=== PATIENT | male | born 1995 | race Caucasian/White ===

== ENCOUNTER 2017-06-16 16:44 | Emergency (ER) | payer OTHER ==
[2017-06-16 16:48] VITALS: BP 135/78; PULSE 106; RESP 20; TEMP 97
[2017-06-16] MEDS ORDERED: cefTRIAXone 1,000 MG VIAL (IM USE) IM STA (17:05)
--- NOTE | 2017-06-16 17:24 | ED ---
Skin/Abscess/FB HPI - General Chief complaint: Skin/Abscess/Foreign Body Stated complaint: Abscess/boils on lower back Time Seen by Provider: 06/16/17 16:56 Source: patient, RN notes reviewed Mode of arrival: ambulatory Limitations: no limitations - History of Present Illness Initial comments: This is a 21-year-old male who presents to the emergency department with chief complaint of abscess. Patient states that on Sunday night he developed what he thought was a pimple on his left buttock. Ximena at bedside states that she tried to pop it. He states that over the course of this past week it has progressively grown in size and is painful to sit down. He states that he has had a lot of drainage from the area. He states that he spoke with his grandmother who is a retired nurse. She thought that patient should present to the emergency department for antibiotics. Patient denies any fevers or chills. Denies chest pain, shortness of breath, abdominal pain, nausea or vomiting, constipation or diarrhea, dysuria or hematuria, numbness or tingling, headache or vision changes. - Related Data Home Medications Medication Instructions Recorded Confirmed Albuterol Nebulized [Ventolin 2.5 mg INHALATION RT-Q6H PRN 06/16/17 06/16/17 Nebulized] Previous Rx's Medication Instructions Recorded Sulfamethox-Tmp 800-160Mg [Bactrim 1 tab PO Q12HR #20 tab 06/16/17 DS 800-160 mg] Allergies Allergy/AdvReac Type Severity Reaction Status Date / Time amoxicillin Allergy Unknown Verified 06/16/17 17:06 Review of Systems ROS Statement: Those systems with pertinent positive or pertinent negative responses have been documented in the HPI. ROS Other: All systems not noted in ROS Statement are negative. Past Medical History Past Medical History: Asthma History of Any Multi-Drug Resistant Organisms: None Reported Past Surgical History: No Surgical Hx Reported Past Psychological History: No Psychological Hx Reported Smoking Status: Current some day smoker Past Alcohol Use History: None Reported Past Drug Use History: Marijuana General Exam - General Exam Comments Initial Comments: General: Awake and alert, well-developed; in no apparent distress. HEENT: Head atraumatic, normocephalic. Pupils are equal, round and reactive to light. Extraocular movements intact. Oropharynx moist without erythema or exudate. Neck: Supple. Normal ROM. Cardiovascular: Regular rate and rhythm. No murmurs, rubs or gallops. Chest symmetrical. Respiratory: Lungs clear to auscultation bilaterally. No wheezes, rales or rhonchi. Normal respiratory effort with no use of accessory muscles. Musculoskeletal: Normal ROM, no tenderness bilateral upper and lower extremities. Ambulating normally. Skin: [place], warm and dry. 10.5 cm in diameter area of induration and erythema left buttock. There is a central area where abscess has been draining. No active drainage. Neurological: Alert and oriented x3. CN II-XII grossly intact. Speech is fluent and answers are appropriate. No focal neuro deficits. Psychiatric: Normal mood and affect. No overt signs of depression or anxiety noted. Limitations: no limitations Course Vital Signs 06/16/17 16:46 Temperature 97.0 F L Pulse Rate 106 H Respiratory 20 Rate Blood Pressure 135/78 O2 Sat by Pulse 99 Oximetry Medical Decision Making - Medical Decision Making This is a 21-year-old male who presents to the emergency department with chief complaint of abscess. There is an area of induration noted at left buttock. Abscess has already been draining. No active drainage or area of fluctuance. Patient given IM ceftriaxone while in the emergency department. He will be discharged home with prescription for Bactrim. Patient's vital signs are stable and he is in no acute distress. He is in agreement and voices understanding. All questions answered. Disposition Clinical Impression: Cellulitis of buttock, left Disposition: HOME SELF-CARE Condition: Good Instructions: Abscess (ED), Cellulitis (ED) Additional Instructions: Please take medications as prescribed. Please apply warm compresses. Please follow up with primary care provider within 1-2 days. Return to emergency department if symptoms should worsen or any concerns arise. Prescriptions: Sulfamethox-Tmp 800-160Mg [Bactrim DS 800-160 mg] 1 tab PO Q12HR #20 tab Referrals: None,Stated [Primary Care Provider] - 1-2 days Time of Disposition: 17:23
== END 2017-06-16 17:35 | disposition home or self-care (01) ==
LOC: EC 16:44
DX: L03.317 Cellulitis of buttock (principal); F17.200 Nicotine dependence, unspecified, uncomplicated; Z88.0 Allergy status to penicillin
CPT/HCPCS: 99282; 96372; J0696

== ENCOUNTER 2018-06-30 18:12 | Emergency (ER) | payer OTHER ==
[2018-06-30 18:28] VITALS: TEMP 98.2
[2018-06-30] MEDS ORDERED: KETOROLAC 30 MG/ML 1 ML VIAL IVP STA (18:43)
--- NOTE | 2018-06-30 18:53 | ED ---
General Adult HPI - General Chief complaint: Abdominal Pain Stated complaint: side pain Time Seen by Provider: 06/30/18 18:33 Source: patient Mode of arrival: ambulatory Limitations: no limitations - History of Present Illness Initial comments: 22-year-old male past medical history of asthma and smoking history presenting today for chief complaint of left-sided rib pain. Patient states that yesterday he began to develop left-sided rib pain. He states has been on and off throughout the day increasing. He states is at work and cannot take the pain a nd presented for medication. Patient denies any radiation of the pain. Patient states the pain is constant, stabbing pain. Patient denies any chest pain, dyspnea, dyspnea on exertion. He states he is a smoker and has a mild cough he denies any changes in his usual occasional cough. Patient denies any trauma to the chest or ribs. He denies any hematuria, dysuria. Patient denies any back pain, wheezing, nausea or vomiting, upper or lower abdominal pain. Upon arrival pt appears well, no acute distress. VS reveal elevation of BP remaining within acceptable limits. - Related Data Home Medications Medication Instructions Recorded Confirmed Albuterol Nebulized [Ventolin 2.5 mg INHALATION RT-Q6H PRN 06/16/17 06/16/17 Nebulized] Previous Rx's Medication Instructions Recorded Sulfamethox-Tmp 800-160Mg [Bactrim 1 tab PO Q12HR #20 tab 06/16/17 DS 800-160 mg] Allergies Allergy/AdvReac Type Severity Reaction Status Date / Time amoxicillin Allergy Unknown Verified 06/30/18 18:28 Review of Systems ROS Statement: Those systems with pertinent positive or pertinent negative responses have been documented in the HPI. ROS Other: All systems not noted in ROS Statement are negative. Past Medical History Past Medical History: Asthma History of Any Multi-Drug Resistant Organisms: None Reported Past Surgical History: No Surgical Hx Reported Past Psychological History: No Psychological Hx Reported Smoking Status: Never smoker Past Alcohol Use History: Daily Past Drug Use History: Marijuana General Exam - General Exam Comments Initial Comments: General: The patient is awake and alert, in no distress, and does not appear acutely ill. Eye: +3 mm pupils are equal, round and reactive to light, extra-ocular movements are intact. No nystagmus. There is normal conjunctiva bilaterally. No signs of icterus. Ears, nose, mouth and throat: There are moist mucous membranes and no oral lesions. Neck: The neck is supple, there is no tenderness or JVD. Cardiovascular: There is a regular rate and rhythm. No murmur, rub or gallop is appreciated. Tenderness to palpation of the left side of lower ribs. Lung sounds present in all garcia. Respiratory: Lungs are clear to auscultation, respirations are non-labored, breath sounds are equal. No wheezes, stridor, rales, or rhonchi. Gastrointestinal: Soft, non-distended, non-tender abdomen without masses or organomegaly noted. There is no rebound or guarding present. No CVA tenderness. Bowel sounds are unremarkable. Musculoskeletal: Normal ROM, no tenderness. Strength 5/5. Sensation intact. Radial pulses equal bilaterally 2+. Neurological: A&O x 3. CN II-XII intact, There are no obvious motor or sensory deficits. Coordination appears grossly intact. Speech is normal. Skin: Skin is warm and dry and no rashes or lesions are noted. Psychiatric: Cooperative, appropriate mood & affect, normal judgment. Limitations: no limitations Course Vital Signs 06/30/18 18:24 Temperature 98.2 F Pulse Rate 92 Respiratory 20 Rate Blood Pressure 154/85 O2 Sat by Pulse 98 Oximetry EKG Findings - EKG Comments: EKG Findings:: A 12-lead EKG was performed and shows the following: Rate is 75 bpm, and rhythm is normal sinus with sinus arrythmia. There are normal QRS complexes and normal R-wave progression. ST segments have no elevation or depression, and OK segments appear normal. Medical Decision Making - Medical Decision Making Well-appearing 22-year-old male presenting today for chief of left rib pain. Patient states unsure if he had hard cough as he smokes marijuana and sometimes has coughing spells. Lungs clear upon auscultation. Normal cardiac examination. X-ray of the abdomen and left lateral ribs revealed no abnormali ty. EKG no acute abnormalities. No other associated symptoms. Reproducible to touch. PERC (-). UA no hematuria. No CVA tendneress. Benign abdominal exam. At this time I feel patient pain musculoskeletal given significance of tenderness to palpation. No skin abnormalities. Patient given toradol. Upon reevaluation patient states that pain improved. Case discussed with attending Dr. Sadler who at this time feels patient is stable for discharge with outpatient PCP f/u. Return parameters were discussed at length the patient who verbalizes understanding. Pt discharged appearing well. - Lab Data Result diagrams: 06/30/18 19:03 06/30/18 19:03 Lab Results 06/30/18 06/30/18 06/30/18 Range/Units 19:03 19:03 19:03 WBC 8.6 (3.8-10.6) k/uL RBC 5.10 (4.30-5.90) m/uL Hgb 14.9 (13.0-17.5) gm/dL Hct 45.4 (39.0-53.0) % MCV 89.0 (80.0-100.0) fL MCH 29.1 (25.0-35.0) pg MCHC 32.7 (31.0-37.0) g/dL RDW 13.0 (11.5-15.5) % Plt Count 290 (150-450) k/uL Neutrophils % 64 % Lymphocytes % 24 % Monocytes % 5 % Eosinophils % 5 % Basophils % 0 % Neutrophils # 5.6 (1.3-7.7) k/uL Lymphocytes # 2.1 (1.0-4.8) k/uL Monocytes # 0.5 (0-1.0) k/uL Eosinophils # 0.4 (0-0.7) k/uL Basophils # 0.0 (0-0.2) k/uL Sodium 139 (137-145) mmol/L Potassium 4.3 (3.5-5.1) mmol/L Chloride 108 H (98-107) mmol/L Carbon Dioxide 22 (22-30) mmol/L Anion Gap 9 mmol/L BUN 16 (9-20) mg/dL Creatinine 0.74 (0.66-1.25) mg/dL Est GFR (CKD-EPI)AfAm >90 (>60 ml/min/1.73 sqM) Est GFR (CKD-EPI)NonAf >90 (>60 ml/min/1.73 sqM) Glucose 87 (74-99) mg/dL Calcium 9.8 (8.4-10.2) mg/dL Total Bilirubin 0.5 (0.2-1.3) mg/dL AST 35 (17-59) U/L ALT 66 (21-72) U/L Alkaline Phosphatase 98 (38-126) U/L Total Protein 7.2 (6.3-8.2) g/dL Albumin 4.4 (3.5-5.0) g/dL Lipase 52 (23-300) U/L Urine Color Yellow Urine Appearance Clear (Clear) Urine pH 6.0 (5.0-8.0) Ur Specific [place] 1.027 (1.001-1.035) Urine Protein Trace H (Negative) Urine Glucose (UA) Negative (Negative) Urine Ketones Negative (Negative) Urine Blood Negative (Negative) Urine Nitrite Negative (Negative) Urine Bilirubin Negative (Negative) Urine Urobilinogen <2.0 (<2.0) mg/dL Ur Leukocyte Esterase Negative (Negative) Disposition Clinical Impression: Rib pain on left side Disposition: HOME SELF-CARE Condition: Good Instructions (If sedation given, give patient instructions): Musculoskeletal Pain (ED) Additional Instructions: Please use medication as discussed. Please follow-up with family doctor in the next 2 days of symptoms have not improved. Please return to emergency room if the symptoms increase or worsen or for any other concerns. Is patient prescribed a controlled substance at d/c from ED?: No Referrals: None,Stated [Primary Care Provider] - 1-2 days [facility] [[facility]STA[facility]] - 1-2 days Time of Disposition: 19:48
[2018-06-30 19:14] LABS: Basophils % (A) 0 %; Eosinophils # (A) 0.4 k/uL (0-0.7); Eosinophils % (A) 5 %; HCT 45.4 % (39.0-53.0); HGB 14.9 gm/dL (13.0-17.5); Lymphocytes # (A) 2.1 k/uL (1.0-4.8); Lymphocytes % (A) 24 %; MCH 29.1 pg (25.0-35.0); MCHC 32.7 g/dL (31.0-37.0); Mean Platelet Volume 6.5; Monocytes # (A) 0.5 k/uL (0-1.0); Monocytes % (A) 5 %; Neutrophils # (A) 5.6 k/uL (1.3-7.7); Neutrophils % (A) 64 %; Platelet Count 290 k/uL (150-450); WBC 8.6 k/uL (3.8-10.6)
[2018-06-30 19:15] LABS: Appearance,Urine Clear (Clear); Bilirubin,Urine Negative (Negative); Blood,Urine Negative (Negative); Color,Urine Yellow; Glucose,Urine (UA) Negative (Negative); Ketones,Urine Negative (Negative); Leukocyte Esterase,Urine Negative (Negative); Nitrite,Urine Negative (Negative); Protein,Urine Trace (Negative); Specific Gravity,Urine 1.027 (1.001-1.035); Urobilinogen,Urine <2.0 mg/dL (<2.0)
[2018-06-30 19:23] LABS: ALT 66 U/L (21-72); AST 35 U/L (17-59); Albumin 4.4 g/dL (3.5-5.0); Alkaline Phosphatase 98 U/L (38-126); Anion Gap 9 mmol/L; Blood Urea Nitrogen 16 mg/dL (9-20); Calcium 9.8 mg/dL (8.4-10.2); Carbon Dioxide 22 mmol/L (22-30); Chloride 108 mmol/L (98-107); Glucose 87 mg/dL (74-99); Lipase 52 U/L (23-300); Potassium 4.3 mmol/L (3.5-5.1); Sodium 139 mmol/L (137-145); Total Bilirubin 0.5 mg/dL (0.2-1.3); Total Protein 7.2 g/dL (6.3-8.2)
--- NOTE | 2018-06-30 19:38 | XR ---
Chest x-ray with left RIBS HISTORY: Left-sided rib pain Frontal view of the chest and 4 views of left ribs, no comparisons There is no evident airspace disease, pneumothorax, or pleural effusion. No displaced rib fracture. B one mineralization is maintained. IMPRESSION: No acute abnormality.
[2018-06-30 21:01] VITALS: BP 136/79; PULSE 96; RESP 16
== END 2018-06-30 21:00 | disposition home or self-care (01) ==
LOC: EC 18:12
DX: R07.81 Pleurodynia (principal); R05 Cough; F12.90 Cannabis use, unspecified, uncomplicated; J45.909 Unspecified asthma, uncomplicated; Z88.0 Allergy status to penicillin
CPT/HCPCS: 36415; 93005; 80053; 83690; 85025; 81003; 71101; 99284; 96374; J1885

== ENCOUNTER 2021-05-26 09:57 | Emergency (ER) | payer OTHER ==
[2021-05-26 10:04] VITALS: BP 135/82; PULSE 97; RESP 18; TEMP 97.8
--- NOTE | 2021-05-26 10:14 | ED ---
Lower Extremity Injury HPI - General Chief Complaint: Extremity Injury, Lower Stated Complaint: Fall, knee pain Time Seen by Provider: 05/26/21 10:05 Source: patient, RN notes reviewed Mode of arrival: wheelchair Limitations: no limitations - History of Present Illness Initial Comments: 45-year-old male presents emergency Department with chief complaint of right knee pain. Patient states he fell he twisted, also hyperextended his right knee. Patient states some ice last night but states he persisted to walk on it, she'll walk and states he woke up with stiffening, pain to his right knee. Patient denies any prior knee issues no bruising, redness noted. Patient states he feels swollen, tight and is worse when he tries to ambulate. - Related Data Home Medications Medication Instructions Recorded Confirmed Albuterol Nebulized [Ventolin 2.5 mg INHALATION RT-Q6H PRN 06/16/17 06/16/17 Nebulized] Previous Rx's Medication Instructions Recorded Sulfamethox-Tmp 800-160Mg [Bactrim 1 tab PO Q12HR #20 tab 06/16/17 DS 800-160 mg] Ibuprofen [Motrin] 600 mg PO Q8HR PRN #20 tab 05/26/21 Allergies Allergy/AdvReac Type Severity Reaction Status Date / Time amoxicillin Allergy Unknown Verified 06/30/18 18:28 Review of Systems ROS Statement: Those systems with pertinent positive or pertinent negative responses have been documented in the HPI. ROS Other: All systems not noted in ROS Statement are negative. Past Medical History Past Medical History: Asthma History of Any Multi-Drug Resistant Organisms: None Reported Past Surgical History: No Surgical Hx Reported Past Psychological History: No Psychological Hx Reported Smoking Status: Never smoker Past Alcohol Use History: Daily Past Drug Use History: Marijuana General Exam Limitations: no limitations General appearance: alert, in no apparent distress Head exam: Present: atraumatic, normocephalic, normal inspection Respiratory exam: Present: normal lung sounds bilaterally. Absent: respiratory distress, wheezes, rales, rhonchi, stridor Cardiovascular Exam: Present: regular rate, normal rhythm, normal heart sounds. Absent: systolic murmur, diastolic murmur, rubs, gallop, clicks Extremities exam: Present: other (Right knee there is full range of motion for reports discomfort, no significant swelling no laxity noted negative anterior posterior drawer.) Neurological exam: Present: reflexes normal. Absent: motor sensory deficit Skin exam: Present: warm, dry, intact, normal color. Absent: rash Course Vital Signs 05/26/21 10:01 Temperature 97.8 F Pulse Rate 97 Respiratory 18 Rate Blood Pressure 135/82 O2 Sat by Pulse 98 Oximetry Medical Decision Making - Medical Decision Making X-ray shows small joint effusion otherwise no acute abnormality. Patient's cannot follow-up with orthopedics for further evaluation possible MRI. Patient has a right knee sprain Disposition Clinical Impression: Right knee sprain Disposition: HOME SELF-CARE Condition: Stable Instructions (If sedation given, give patient instructions): Knee Sprain (ED) Additional Instructions: Please return to the Emergency Department if symptoms worsen or any other concerns. Prescriptions: Ibuprofen [Motrin] 600 mg PO Q8HR PRN #20 tab PRN Reason: Pain Is patient prescribed a controlled substance at d/c from ED?: No Referrals: Darren Bliss MD [Primary Care Provider] - 1-2 days Time of Disposition: 10:41
--- NOTE | 2021-05-26 10:27 | XR ---
Right knee HISTORY: Trauma, pain 3 views of the right knee Suprapatellar increased density suggests joint effusion. Bone mineralization, joint spaces and alignm ent are maintained. There is overlying artifact. IMPRESSION: No fracture or dislocation. Knee MRI may be of benefit, suspected joint effusion, correla te.
== END 2021-05-26 10:55 | disposition home or self-care (01) ==
LOC: EC 09:57
DX: S83.91XA Sprain of unspecified site of right knee, initial encounter (principal); J45.909 Unspecified asthma, uncomplicated; X50.1XXA Overexertion from prolonged static or awkward postures, initial encounter
CPT/HCPCS: 99283

== ENCOUNTER 2022-03-22 09:03 | Emergency (ER) | payer OTHER ==
[2022-03-22 09:10] VITALS: BP 137/92; PULSE 84; RESP 18; TEMP 98.7
[2022-03-22] MEDS ORDERED: ACET/COD 300 MG/30 MG STARTER PACK 6 TAB BTL PO STA (09:26)
[2022-03-22] MEDS ORDERED: HYDROmorphone 1 MG/ML 1 ML SYRINGE IM STA (09:26)
--- NOTE | 2022-03-22 09:30 | ED ---
Back Pain HPI - General Chief Complaint: Back Pain/Injury Stated Complaint: back pain Time Seen by Provider: 03/22/22 09:12 Source: patient, RN notes reviewed Mode of arrival: ambulatory Limitations: no limitations - History of Present Illness Initial Comments: This a 26-year-old male presents emergency Department chief complaint of mid to low back pain. He states that he is bent over to sweep running to his bed and felt something tight knot, pop. 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 He denies any bowel compartment complaints retentionanesthesias. Patient states he feels spasms in his back. Patient has no abdominal complaints denies fevers chills no weakness of his lower extremity is. He states that certain movements or worse and others he is able to get relief at rest. - Related Data Home Medications Medication Instructions Recorded Confirmed Albuterol Nebulized [Ventolin 2.5 mg INHALATION RT-Q6H PRN 06/16/17 06/16/17 Nebulized] Previous Rx's Medication Instructions Recorded Sulfamethox-Tmp 800-160Mg [Bactrim 1 tab PO Q12HR #20 tab 06/16/17 DS 800-160 mg] Ibuprofen [Motrin] 600 mg PO Q8HR PRN #20 tab 05/26/21 Cyclobenzaprine [Flexeril] 10 mg PO TID PRN #15 tab 03/22/22 Ibuprofen [Motrin] 600 mg PO Q8HR PRN #30 tab 03/22/22 Allergies Allergy/AdvReac Type Severity Reaction Status Date / Time amoxicillin Allergy Unknown Verified 03/22/22 09:10 Review of Systems ROS Statement: Those systems with pertinent positive or pertinent negative responses have been documented in the HPI. ROS Other: All systems not noted in ROS Statement are negative. Past Medical History Past Medical History: Asthma History of Any Multi-Drug Resistant Organisms: None Reported Past Surgical History: No Surgical Hx Reported Past Psychological History: No Psychological Hx Reported Smoking Status: Current every day smoker Past Alcohol Use History: Daily Past Drug Use History: Marijuana General Exam Limitations: no limitations General appearance: alert, in no apparent distress Head exam: Present: atraumatic, normocephalic, normal inspection Eye exam: Present: normal appearance, PERRL, EOMI. Absent: scleral icterus, conjunctival injection, periorbital swelling ENT exam: Present: normal exam, normal oropharynx, mucous membranes moist, TM's normal bilaterally Neck exam: Present: normal inspection, full ROM. Absent: tenderness, meningismus, lymphadenopathy Respiratory exam: Present: normal lung sounds bilaterally. Absent: respiratory distress, wheezes, rales, rhonchi, stridor Cardiovascular Exam: Present: regular rate, normal rhythm, normal heart sounds. Absent: systolic murmur, diastolic murmur, rubs, gallop, clicks Extremities exam: Present: normal inspection, full ROM, normal capillary refill. Absent: tenderness, pedal edema, joint swelling, calf tenderness Back exam: Present: tenderness, muscle spasm, paraspinal tenderness. Absent: full ROM, CVA tenderness (R), CVA tenderness (L), vertebral tenderness Neurological exam: Present: alert, oriented X3, reflexes normal. Absent: motor sensory deficit Course Vital Signs 03/22/22 09:08 Temperature 98.7 F Pulse Rate 84 Respiratory 18 Rate Blood Pressure 137/92 O2 Sat by Pulse 100 Oximetry Medical Decision Making - Medical Decision Making 26-year-old presented for low back pain. This is acute strain of lumbar, thoracic spine with no red flag symptoms. Patient does not have dramatic fall. Patient had multiple x-rays in the past. Patient is comfortable pain control, discharged with close follow-up and return parameters were discussed. Disposition Clinical Impression: Strain of lumbar region, Strain of thoracic back region Disposition: HOME SELF-CARE Condition: Stable Instructions (If sedation given, give patient instructions): Acute Low Back Pain (ED) Additional Instructions: Please return to the Emergency Department if symptoms worsen or any other concerns. Prescriptions: Cyclobenzaprine [Flexeril] 10 mg PO TID PRN #15 tab PRN Reason: Muscle Spasm Ibuprofen [Motrin] 600 mg PO Q8HR PRN #30 tab PRN Reason: Pain Is patient prescribed a controlled substance at d/c from ED?: No Referrals: None,Stated [Primary Care Provider] - 1-2 days Time of Disposition: 09:29
== END 2022-03-22 09:33 | disposition home or self-care (01) ==
LOC: EC 09:03
DX: S39.012A Strain of muscle, fascia and tendon of lower back, initial encounter (principal); S29.012A Strain of muscle and tendon of back wall of thorax, initial encounter; F17.290 Nicotine dependence, other tobacco product, uncomplicated; J45.909 Unspecified asthma, uncomplicated; Z88.1 Allergy status to other antibiotic agents; Z79.51 Long term (current) use of inhaled steroids; X50.9XXA Other and unspecified overexertion or strenuous movements or postures, initial encounter; Y92.89 Other specified places as the place of occurrence of the external cause
CPT/HCPCS: 99283; 96372; J1170

== ENCOUNTER 2023-11-06 10:18 | Emergency (ER) | payer OTHER ==
--- NOTE | 2023-11-06 10:41 | ED ---
Back Pain HPI - General Source: patient, RN notes reviewed <Lashae Barroso - Last Filed: 11/06/23 10:40> - General Source: patient, RN notes reviewed Limitations: no limitations <Jose Manuel Tillman - Last Filed: 11/06/23 12:51> - General Stated Complaint: Back Pain Time Seen by Provider: 11/06/23 10:35 - History of Present Illness Initial Comments: Quick Note-this is a 27-year-old male presents emergency department chief complaint of thoracic and lumbar back pain that started last night. States that it feels like his back is tight and is described as a muscle spasm. He denies recent falls or injuries to the back. Denies loss of bladder or bowel continence, saddle anesthesias, fevers or history of IV drug use. Denies previous surgeries on his back. (Lashae Barroso) Patient is a 27-year-old male present to the emergency department with back pain. Patient does have history of chronic back pain. Patient states symptoms started this time while standing up. Patient does have history of similar symptoms previously and usually sees a chiropractor for this. Patient has also seen a doctor and been prescribed Flexeril multiple times. Patient requests Zanaflex as he feels Flexeril is not strong enough for him. No incontinence or retention of bowel or bladder. No weakness or loss of sensation. (Jose Manuel Tillman) - Related Data Home Medications Medication Instructions Recorded Confirmed Albuterol Nebulized [Ventolin 2.5 mg INHALATION RT-Q6H PRN 06/16/17 06/16/17 Nebulized] Previous Rx's Medication Instructions Recorded Sulfamethox-Tmp 800-160Mg [Bactrim 1 tab PO Q12HR #20 tab 06/16/17 DS 800-160 mg] Ibuprofen [Motrin] 600 mg PO Q8HR PRN #20 tab 05/26/21 Cyclobenzaprine [Flexeril] 10 mg PO TID PRN #15 tab 03/22/22 Ibuprofen [Motrin] 600 mg PO Q8HR PRN #30 tab 03/22/22 tiZANidine [Zanaflex] 4 mg PO Q6HR PRN #20 tab 11/06/23 Allergies Allergy/AdvReac Type Severity Reaction Status Date / Time amoxicillin Allergy Unknown Verified 11/06/23 10:46 Review of Systems ROS Other: All systems not noted in ROS Statement are negative. <Lashae Barroso - Last Filed: 11/06/23 10:40> ROS Other: All systems not noted in ROS Statement are negative. Constitutional: Denies: fever Eyes: Denies: eye pain ENT: Denies: ear pain Respiratory: Denies: cough, dyspnea Cardiovascular: Denies: chest pain Endocrine: Denies: fatigue Gastrointestinal: Denies: abdominal pain Genitourinary: Denies: dysuria Musculoskeletal: Reports: as per HPI, back pain Neurological: Denies: weakness, numbness, paresthesias <TillmanJose Manuel - Last Filed: 11/06/23 12:51> ROS Statement: Those systems with pertinent positive or pertinent negative responses have been documented in the HPI. Past Medical History Past Medical History: Asthma History of Any Multi-Drug Resistant Organisms: None Reported Past Surgical History: No Surgical Hx Reported Past Psychological History: No Psychological Hx Reported Smoking Status: Current every day smoker Past Alcohol Use History: Daily Past Drug Use History: Marijuana <ChioLashae - Last Filed: 11/06/23 10:40> General Exam <ChioLashae - Last Filed: 11/06/23 10:40> Limitations: no limitations General appearance: alert, in no apparent distress Head exam: Present: normocephalic Eye exam: Present: normal appearance Neck exam: Present: normal inspection Respiratory exam: Present: normal lung sounds bilaterally Cardiovascular Exam: Present: regular rate, normal rhythm Expanded Peripheral pulses: 2+: Dorsalis Pedis (R), Dorsalis Pedis (L) GI/Abdominal exam: Present: soft. Absent: tenderness, pulsatile mass Extremities exam: Present: normal inspection Back exam: Present: vertebral tenderness (Mild diffuse tenderness lumbar and lower thoracic spine) Neurological exam: Present: alert. Absent: motor sensory deficit Expanded Speech: Present: fluid speech Sensory exam: Lower Extremity Light Touch: Normal Motor strength exam: RUE: 5, LUE: 5, RLE: 5, LLE: 5 Psychiatric exam: Present: normal affect, normal mood Skin exam: Present: normal color <Jose Manuel Tillman - Last Filed: 11/06/23 12:51> - General Exam Comments Initial Comments: Visual Physical Exam Vital signs reviewed General: Well-appearing, nontoxic, no acute distress. Head: Normocephalic, atraumatic Eyes: PERRLA, EOMI ENT: Airway patent Chest: Nonlabored breathing Skin: No visual rash, normal skin tone Neuro: Alert and oriented 3 Musculoskeletal: No gross abnormalities (Lashae Barroso) Course Vital Signs 11/06/23 10:44 Temperature 98.1 F Pulse Rate 77 Respiratory 18 Rate Blood Pressure 142/92 O2 Sat by Pulse 99 Oximetry Medical Decision Making <Lashae Barroso - Last Filed: 11/06/23 10:40> <Jose Manuel Tillman - Last Filed: 11/06/23 12:51> - Medical Decision Making I completed the quick note portion of this chart signed Lashae Barroso PA-C (Lashae Barroso) Was pt. sent in by a medical professional or institution (GONZALES Ibarra, DATA MODELING ARCHITECT, urgent care, hospital, or half-way...) When possible be specific @ -No Did you speak to anyone other than the patient for history (EMS, parent, family, police, friend...)? What history was obtained from this source @ -No Did you review nursing and triage notes (agree or disagree)? Why? @ -I reviewed and agree with nursing and triage notes Were old charts reviewed (outside hosp., previous admission, EMS record, old EKG, old radiological studies, urgent care reports/EKG's, half-way records)? Report findings @ -Previous visits reviewed including medications provided and prescriptions Differential Diagnosis (chest pain, altered mental status, abdominal pain women, abdominal pain men, vaginal bleeding, weakness, fever, dyspnea, syncope, headache, dizziness, GI bleed, back pain, seizure, CVA, palpatations, mental health, musculoskeletal)? @ -Differential Back Pain: Strain, zoster, cauda equina syndrome, epidural abscess, vertebral osteomyelitis, discitis, fracture, subluxation, disc herniation, DJD, spinal stenosis, dissection, AAA, pancreatitis, peptic ulcer disease, pyelonephritis, kidney stone, this is not meant to be an all-inclusive list. EKG interpreted by me (3pts min.). @ -As above X-rays interpreted by me (1pt min.). @ -Thoracic and lumbar x-rays show mild degenerative changes CT interpreted by me (1pt min.). @ -None done U/S interpreted by me (1pt. min.). @ -None done What testing was considered but not performed or refused? (CT, X-rays, U/S, labs)? Why? @ -None What meds were considered but not given or refused? Why? @ -None Did you discuss the management of the patient with other professionals (professionals i.e. , PA, DATA MODELING ARCHITECT, lab, RT, psych nurse, dialysis social worker, healthcare specialist, teacher, assignment officer, pillowcase folder)? Give summary @ -No Was smoking cessation discussed for >3mins.? @ -No Was critical care preformed (if so, how long)? @ -No Were there social determinants of health that impacted care today? How? (Homelessness, low income, unemployed, alcoholism, drug addiction, transportation, low edu. Level, literacy, decrease access to med. care, [facility], rehab)? @ -No Was there de-escalation of care discussed even if they declined (Discuss DNR or withdrawal of care, Hospice)? DNR status @ -No What co-morbidities impacted this encounter? (DM, HTN, Smoking, COPD, CAD, Cancer, CVA, ARF, Chemo, Hep., AIDS, mental health diagnosis, sleep apnea, morbid obesity)? @ -None Was patient admitted / discharged? Hospital course, mention meds given and route, prescriptions, significant lab abnormalities, going to OR and other pertinent info. @ -Patient presents with acute on chronic back pain. Patient will be provided medications and prescription for muscle relaxer and discharged for follow-up with his doctor. Undiagnosed new problem with uncertain prognosis? @ -No Drug Therapy requiring intensive monitoring for toxicity (Heparin, Nitro, Insulin, Cardizem)? @ -No Were any procedures done? @ -No Diagnosis/symptom? @ -Back pain Acute, or Chronic, or Acute on Chronic? @ -Acute Uncomplicated (without systemic symptoms) or Complicated (systemic symptoms)? @ -Default Side effects of treatment? @ -No Exacerbation, Progression, or Severe Exacerbation? @ -No Poses a threat to life or bodily function? How? (Chest pain, [place], [place], pneumonia, PE, COPD, DKA, ARF, appy, cholecystitis, CVA, Diverticulitis, Homicidal, Suicidal, threat to staff... and all critical care pts) @ -No (Jose Manuel Tillman) Disposition <Lashae Barroso - Last Filed: 11/06/23 10:40> Is patient prescribed a controlled substance at d/c from ED?: No Time of Disposition: 12:47 <Jose Manuel Tillman - Last Filed: 11/06/23 12:51> Clinical Impression: Back pain Disposition: HOME SELF-CARE Condition: Stable Instructions (If sedation given, give patient instructions): Acute Low Back Pain (ED) Additional Instructions: Please do follow-up with your primary care physician in the next day or 2 for recheck. Return for increased pain, weakness, loss of control of bowel or bladder, worsening or changing symptoms or other concerns or fevers. Prescriptions: tiZANidine [Zanaflex] 4 mg PO Q6HR PRN #20 tab PRN Reason: Pain Referrals: Asif Velarde MD [STAFF PHYSICIAN] - 1-2 days
[2023-11-06 10:46] VITALS: RESP 18
--- NOTE | 2023-11-06 12:18 | XR ---
EXAMINATION TYPE: XR thoracic spine 3V, XR lumbar spine 3V DATE OF EXAM: 11/06/2023 COMPARISON: NONE HISTORY: 27-year-old male with pain FINDINGS: Thoracic spine: 12 rib-bearing thoracic vertebral bodies. All pedicles are visualized. Vertebral body heights are pre served and alignment is maintained. There may be mild early degenerative disc disease mid thoracic sp ine. Lumbar spine: 5 lumbar type vertebral bodies. Vertebral body heights are preserved and alignment is maintained. Sug gestion of mild disc interspace narrowing at L5-S1 and possibly at L2-L3. IMPRESSION: 1. Thoracic spine: There may be mild early degenerative disc disease in the midthoracic spine. This w ould be age advanced change; correlate for any smoking history. No vertebral compression collapse or malalignment. 2. Lumbar spine: Mild disc space narrowing suggested at L2-L3. No vertebral compression collapse or m alalignment.
[2023-11-06] MEDS: KETOROLAC 15 MG/ML 1 ML VIAL IM STA (12:58)
[2023-11-06] MEDS: ORPHENADRINE 30 MG/ML 2 ML VIAL IM STA (12:58)
[2023-11-06 13:06] VITALS: BP 125/87; PULSE 87; TEMP 98
== END 2023-11-06 13:04 | disposition home or self-care (01) ==
LOC: EC 10:18
DX: M54.9 Dorsalgia, unspecified (principal); F17.200 Nicotine dependence, unspecified, uncomplicated; F12.90 Cannabis use, unspecified, uncomplicated; Z88.0 Allergy status to penicillin
CPT/HCPCS: 72070; 72100; 99284; 96372 ×2; J2360; J1885

== ENCOUNTER → 2023-12-31 | Outpatient (CLI) | payer OTHER ==
--- NOTE | 2024-01-06 10:54 | P.PCN ---
Date of Procedure: 12/23/23 Operative Findings: Home sleep study report Date of service is 12/23/2023 Pertinent history 25-year-old male patient with history of asthma, described loud snoring, stop breathing at night, not feeling refreshed during the day and always feeling tired and feels like taking a nap take a nap at any time when he gets the chance to do so. His father has obstructive sleep apnea and he thinks that the patient has essentially similar symptoms. Based on that, home sleep study Pertinent physical findings The patient has a weight of 250 pounds with a body mass index of 35.9 Technical description The [email or web address] system was used to complete this home sleep study. This is a type III home sleep study. The study duration was 8 hours and 25 minutes. The study started at 10:35 PM ended at 700 a.m. There was a total of 8 hours and 50 minutes of flow monitoring and 8 hours and 7 minutes of oxygen saturation monitoring. This is an adequate study Respiratory summary The sleep study showed a total of 16 obstructive apneas and 53 obstructive hypopneas. The resulting AHI was 8.4 consistent with mild obstructive sleep apnea. No significant mixed apneas. The central apnea index was 1.2. Oxygenation analysis No significant oxygen desaturation encountered throughout the sleep study. Average pulse ox during sleep was 95% with the lowest pulse ox of 90%. Cardiac summary The average heart rate was 70 with a minimum heart rate of 46 and a maximum heart rate of 113 Assessment Mild obstructive sleep apnea with an AHI of 8.4 No evidence of any nocturnal oxygen desaturations Chronic hypersomnia Asthma Obesity with a BMI of 35.9 Plan The patient will be asked to follow-up with Dr. Houston. This is a case of mild obstructive sleep apnea. Recommend conservative measures of losing weight and sleeping on his side and keeping the head of the bed elevated. Avoid alcohol drinking at least 3 hours prior to going to bed. Consider CPAP therapy should the patient continue to be having symptoms of somnolence and sleepiness. No other significant cardiovascular complications at this point in time.
== END ==
LOC: 3 N SLEEP 09:00
PROVIDERS: ATTEND Internal Medicine Critical Care Medicine